=== PATIENT | female | born 1950 | race Caucasian/White ===

== ENCOUNTER 2019-11-27 16:00 | Emergency (ER) | payer MEDICARE, MEDICAID ==
[~2019-11-27] VITALS: Ht 160 cm; Wt 68.0 kg
[~2019-11-27 16:00] MED LIST: ALBU90AE INH; DOXY100T PO; FLUT1AER INH; METO25TA4 PO; PRED20TA PO
[2019-11-27] MEDS ORDERED: LIDOCAINE-MPF 1%, 5ML ONE (16:18)
--- NOTE | 2019-11-27 16:35 | NUR ---
LIDO PULLED FOR PROVIDER ADMIN. MD ADMIN LIDO AND STAPLED HEAD LAC.
[2019-11-27 17:10] LABS: BASOPHILS # (AUTO) 0.03 x10^3/uL (0-0.1); BASOPHILS % (AUTO) 1 % (0-1); EOSINOPHILS % (AUTO) 2 % (1-7); LYMPHOCYTES # (AUTO) 1.49 x10^3/uL (1-3.4); LYMPHOCYTES % (AUTO) 24 % (22-44); MD NO; MEAN CORPUSCULAR HEMOGLOBIN 30.8 pg (27.0-34.8); MEAN CORPUSCULAR HGB CONC 32.7 g/dL (32.4-35.8); MEAN CORPUSCULAR VOLUME 94.2 fL (80-100); MEAN PLATELET VOLUME 9.1 fL (7.4-10.4); MONOCYTES # (AUTO) 0.37 x10^3/uL (0.2-0.8); MONOCYTES % (AUTO) 6 % (2-9); NEUTROPHILS # (AUTO) 4.11 x10^3/uL (1.8-6.8); NEUTROPHILS % (AUTO) 67 % (42-75); PLATELET COUNT 226 x10^3/uL (130-400); RED BLOOD COUNT 4.63 x10^6/uL (3.82-5.3); RED CELL DISTRIBUTION WIDTH 14.2 % (9.6-15.2)
[2019-11-27 17:14] LABS: ALANINE AMINOTRANSFERASE 22 U/L (12-78); ALBUMIN 3.7 g/dL (3.4-5.0); ANION GAP 3 mmol/L (5-15); CALCIUM 8.7 mg/dL (8.5-10.1); CHLORIDE 106 mmol/L (98-107)
[2019-11-27 17:17] LABS: ALKALINE PHOSPHATASE 84 U/L (45-117); BILIRUBIN,TOTAL 0.2 mg/dL (0.2-1.0); CREATININE 0.66 mg/dL (0.55-1.02)
[2019-11-27 17:40] VITALS: BP 126/64
--- NOTE | 2019-11-27 17:40 | NUR ---
BREAK RN: PT RESTING ON PATO. NADN. MC.
== END 2019-11-27 17:54 | disposition home or self-care (01) ==
LOC: ED 16:31
DX: S01.01XA Laceration without foreign body of scalp, initial encounter (principal); R56.9 Unspecified convulsions; I10 Essential (primary) hypertension; J44.9 Chronic obstructive pulmonary disease, unspecified; F17.210 Nicotine dependence, cigarettes, uncomplicated; X58.XXXA Exposure to other specified factors, initial encounter; Y93.89 Activity, other specified; Y92.89 Other specified places as the place of occurrence of the external cause; Y99.8 Other external cause status
CPT/HCPCS: 12001; 36415; 80053; 80175; 85025; 99283; 99406